=== PATIENT | female | born 1960 | race Caucasian/White ===

== ENCOUNTER → 2021-03-27 | Outpatient (CLI) | payer BC ==
[~2021-03-27] MED LIST: ASA81BEC PO; CARVEDILOL25 MG PO; GABAPENTIN600 M1 PO; GLIMEPIRIDE4 MG PO; LANTUS SOL100 UNIT/1 SUBQ; LISINOPRIL-HCT1 EAC2 PO; LOVASTATIN 20 M20 MG PO; MACROBID 100 M100 MG PO; MELOXICAM15 MG PO; METFORMIN HCL1000 MG PO; MULTIPLE VITAM1 EAC2 PO; OMEPRAZOLE 20 M20 M1 PO; TRAMADOL 50 MG50 MG PO; TRULICITY1.5 MG/0.5 SUBQ
[2021-03-27 12:17] LABS: HEMATOCRIT 38.5 % (37.0-47.0); MCH 23.4 pg (26.0-34.0); MCHC 31.1 g/dL (28.0-37.0); MCV 75.5 fL (80.0-100.0); RBC 5.11 mil/uL (4.20-5.00); WBC 6.5 thou/uL (4.0-11.0)
[2021-03-27 12:22] LABS: ALBUMIN 3.7 g/dL (3.4-5.0); CALCIUM 9.7 mg/dL (8.5-10.1); CREATININE 0.8 mg/dL (0.6-1.0); INR 0.9; POTASSIUM 4.9 mmol/L (3.5-5.1); PROTIME 9.9 Seconds (10.5-12.1)
--- NOTE | 2021-03-27 14:02 | EKG ---
[place] [address] [facility] [employer] [address] ELECTROCARDIOGRAM REPORT Name: MALLORIE WRIGHT Room #: REG SAMANTHA Rosado#: [id number] Admission: 03/27/21 Attend Phys: Gracie Puri DO Discharge: Date of : 64 Report #: [id number] [facility] Test Date: 2021-03-27 Test Time: 11:59:58 Pat Name: MALLORIE WRIGHT Department: Room: Gender: F Patient Service Specialist: MAIK ERVIN : 1960 Requested By: Hiro Wick Order Number: [id number] MD: Warren Calle Measurements Intervals [place] Rate: 89 P: -11 CT: 145 QRS: -64 QRSD: 89 T: 47 QT: 361 QTc: 440 Interpretive Statements Sinus rhythm Left anterior fascicular block Borderline low voltage, extremity leads No previous ECG available for comparison Electronically Signed On 03-27-2021 14:02:15 [employer] by Warren Calle [email or web address] <ELECTRONICALLY SIGNED> By: Warren Calle MD, [facility] 03/27/21 1402 1159 1159 Warren Calle MD, FACC /EPI
[2021-03-28 01:06] LABS: GLYCOHEMOGLOBIN (HGB A1C) 6.1 % (4.8-5.6)
== END ==
LOC: PAC 09:44
PROVIDERS: Orthopaedic Surgery; ATTEND Student in an Organized Health Care Education/Training Program
DX: M17.11 Unilateral primary osteoarthritis, right knee (principal); I10 Essential (primary) hypertension; E11.9 Type 2 diabetes mellitus without complications

== ENCOUNTER 2021-04-09 10:34 | Observation (INO) | payer BC ==
[~2021-04-09] VITALS: Ht 167.6 cm; Wt 112.0 kg
[2021-04-09 11:40] VITALS: BP 122/82
[2021-04-09 18:20] VITALS: BP 156/86
[2021-04-09 19:40] VITALS: BP 129/71
--- NOTE | 2021-04-09 19:41 | NUR ---
Patient came to the floor around 1814 from PACU, dinner tray given, pain med given prn for pain, blood sugar is 181, vital sign stable, call light within reach, will continous monitoring.
--- NOTE | 2021-04-10 05:24 | NUR ---
RECEIVED CARE OF THIS PATIENT AT 1900. PATIENT ALERT AND ORIENTED X4. USES BEDPAN. DRESSING ON R KNEE D/I WITH POLAR ICE, TEDS AND SCDS ON. ACCUCHECK 304. NO SS INSULIN ON BOARD. CALL DR JOHN X3 WITH NO CALL BACK TO SEE IF WE COULD GIVE HER A DOSE OF HER TWO DM MEDS. REMAINS ON BEDREST UNTIL SEES PT FOR EVAL. IV IN R HAND PATENT WITH FLUIDS INFUSING.
[2021-04-10 08:00] VITALS: BP 128/56
--- NOTE | 2021-04-10 10:45 | NUR ---
ASSUMED CARE OF PT AT 0700 THIS MORNING. PT IS A/OX4, RUBIN DRESSING, SCD'S, LIZ'S AND POLAR PK IN PLACE. ASSESSMENTS NOTE IN CHART AND OTHERWISE UNREMARKABLE. PHYS NILDAY WROKING WITH PT THIS MORNING AND NOTED THAT SHE CAN BE DISCHARGED. WAITING FOR ORDERS TO BE PLACED. PT IS UP WITH GB AND KEIRY. FALL PRECAUTIONS ARE IN PLACE. CALL LIGHT AND OTHER NEEDS ARE IN REACH. MEDS AND TX GIVEN NEEDED AND SCHEDULED. WILL CONTINUE TO MONITOR AND NOTE ANY CHANGES.
[2021-04-10 11:20] VITALS: BP 126/78
--- NOTE | 2021-04-11 09:46 | O ---
[facility] [place] [address] OPERATIVE REPORT Name: MALLORIE WRIGHT Room #: 437-P [facility] García Rosado#: [id number] Admission: 04/09/21 Attend Phys: Hiro Wick MD Discharge: 04/10/21 Date of : 64 Report #: [id number] THIS REPORT FOR: cc: Yvan Whipple MD, Logan F. MD Abraham,Hiro Lord MD ~ DATE OF SERVICE: 04/09/2021 PREOPERATIVE DIAGNOSIS: Right knee osteoarthritis. POSTOPERATIVE DIAGNOSIS: Right knee osteoarthritis. PROCEDURE: Right total knee arthroplasty using Navio robotic assistance. SURGEON: Hiro Wick MD [employer] CONSULTANT: Summer Sargent PA-C. INDICATION FOR [employer] CONSULTANT: Throughout the case, extensive retraction, manipulation of the knee was required. This was afforded to me by my mail handler assistant. ANESTHESIA: LMA with adductor canal block. IMPLANTS: A [employer] size 6 Journey II BCS Oxinium femur, size 4 tibia, size 11 polyethylene and size 32 patella.. TOURNIQUET TIME: 72 minutes. ESTIMATED BLOOD LOSS: 25 mL COMPLICATIONS: None. SPECIMENS: None. CONDITION UPON LEAVING THE OR: Stable. INDICATIONS FOR PROCEDURE: The patient is a 60-year-old female with severe right knee osteoarthritis. She had failed conservative measures for this and after discussion with her, she elected for right total knee arthroplasty. DESCRIPTION OF PROCEDURE: Risks, benefits, alternatives, complications were discussed in detail with the patient including, but not limited to risk of anesthesia, risk of damage to nerves, arteries, blood vessels, risk for infection, bleeding, risk for continued knee pain and need for reoperation. Informed consent was obtained from the patient. The right knee was appropriately marked in the preoperative holding area. IV Ancef was given for [address] [address] OPERATIVE REPORT Name: MALLORIE WRIGHT Room #: 437-P JESSICA Rosado#: [id number] Admission: 04/09/21 Attend Phys: Hiro Wick MD Discharge: 04/10/21 Date of : 64 Report #: [id number] preoperative antibiotics. Adductor canal block was placed by Anesthesia. She was brought to the operating room and placed in a supine position on the operating room table. LMA anesthesia was induced without complication. A tourniquet was placed on the right thigh. The right lower extremity was prepped and draped in a normal sterile fashion. Timeout was performed, properly identifying the patient and procedure as well as instrumentation and implants. All in the operating room in agreement. The right lower extremity was exsanguinated, tourniquet was inflated. Tourniquet time was 72 minutes. A standard midline approach to the knee was made with a 10 blade through the skin. Dissection was taken down sharply to the fascia and deep flaps were developed medially and laterally. A fresh 10 blade was used to make a medial parapatellar arthrotomy and the knee was inspected. There was severe tricompartmental osteoarthritis. ACL and PCL were removed sharply. Reference pins were placed in the femur and the tibia. The knee was then digitally mapped using the [employer] robotic system. Intraoperative plan was made. We sized the size 6 femur, the size 4 tibia and a 10 spacer. After acceptance of the intraoperative plan, the distal femoral cut was made with Navio bur. Distal femoral cutting block was pinned in place and chamfer cuts were made. Attention was turned to the tibia. Remainder of the menisci removed with Bovie cautery. Tibial resection guide was pinned in place using Navio for placement and tibial resection was made. Flexion and extension gaps were checked and found to be tight medially. A medial osteophyte was removed from the tibia and a limited medial release was performed using the pie crust technique. This balanced the knee well. Tibia was sized, found to be a size 4. Size 4 tibial trial was placed, pinned and punched. The size 6 femoral trial was placed and box cut was made. This was then trialed with a size 10 and then a size 11 polyethylene and size 11 polyethylene demonstrated 1-2 mm of laxity medially with up to 3-mm laterally in mid flexion. It was felt we can make up for this with a constrained implant. Then, 9 mm of bone was resected from the posterior surface of the patella and a size 32 patellar trial button was placed. The knee was taken through range of motion, found to be stable, found to have good patellar tracking. Trial components were removed. Bone ends were thoroughly irrigated with normal saline. A final size 4 tibia, size 6 Journey II BCS Oxinium femur and a size 32 patella were cemented in place using standard cementation techniques. While the cement cured, a periarticular injection consisting of morphine, ropivacaine, epinephrine, Toradol was placed around the knee joint capsule. After the cement cured, the tourniquet was deflated. Hemostasis was obtained with Bovie cautery. A final size 11 constrained polyethylene was placed. A gram of vancomycin was placed deep in the joint. Fascia was closed with 0 Vicryl. Skin was closed with 2-0 Vicryl, skin staple and a RUBIN dressing was applied. The patient [address] [address] OPERATIVE REPORT Name: MALLORIE WRIGHT Room #: 437-P [facility] García Rosado#: [id number] Admission: 04/09/21 Attend Phys: Hiro Wick MD Discharge: 04/10/21 Date of : 64 Report #: [id number] tolerated this procedure well and went to recovery room under care of Anesthesia postoperatively. <ELECTRONICALLY SIGNED> By: Hiro Wick MD 04/11/21 0946 1513 1649 Hiro Wick MD /nt
== END 2021-04-10 14:02 | disposition home or self-care (01) ==
LOC: OR → 4S 18:18 → OR 18:19 → 4S 04-10 14:02
PROVIDERS: ADMIT Orthopaedic Surgery; ATTEND Orthopaedic Surgery
DX: M17.11 Unilateral primary osteoarthritis, right knee (principal); Z20.822 Contact with and (suspected) exposure to COVID-19; Z79.899 Other long term (current) drug therapy
CPT/HCPCS: 50010; 50101; 50415; 50954; 51130; 51225; 51320; 51412; 52001; 52282; 53000; 53078; 53365; 56527; 56528; 57095; 57103; 57110; 57127; 57180; 64039; 70005